=== PATIENT | male | born 1940 | race Caucasian/White ===

== ENCOUNTER 2019-07-31 05:44 | Emergency (ER) | payer MEDICARE ==
[2019-07-31] MEDS ORDERED: Amiodarone 150 MG/3 ML VIAL ONE ×2 (05:50→13:52)
[2019-07-31] MEDS ORDERED: Sodium Bicarb 50 MEQ/50 ML VIAL ONE (06:15)
[2019-07-31 13:43] LABS: Base Excess-Venous -1.3 mmol/L (-2.0 to 3.0); Bicarbonate (HCO3v) 31.8 mmol/L (22.0-28.0); CO2 Tension (PvCO2) 117.2 mmHg (40.0-50.0); Chloride 110 mmol/L (98-107); Glucose 93 mg/dL (83-110); Hemoglobin - Calc 11.2 g/dL (14.0-18.0); Lactate 10.46 mmol/L (0.50-2.20); Sodium 154 mmol/L (138-145); T. Carbon Dioxide 35.4 mmol/L (22.0-28.0); vO2 Saturation-calc 41.4 % (60.0-85.0)
[2019-07-31] MEDS ORDERED: Dextrose 50% Abboject 50 ML SYRINGE ONE (13:52)
[2019-07-31] MEDS ORDERED: EPINEPHrine 1 MG/10 ML Abboject SYRINGE ONE (13:52)
[2019-07-31] MEDS ORDERED: Sodium Bicarb 50 MEQ/50 ML Abboject 8.4% SYRINGE ONE (13:52)
[2019-07-31] MEDS ORDERED: Atropine Sulfate 1 mg/10 ml Syringe ONE (13:52)
[2019-07-31] MEDS ORDERED: EPINEPHrine 1 MG/ML AMP ONE (13:52)
== END 2019-07-31 06:37 | disposition expired ==
LOC: ERS 05:44
DX: I46.9 Cardiac arrest, cause unspecified (principal); E11.9 Type 2 diabetes mellitus without complications; I48.91 Unspecified atrial fibrillation
CPT/HCPCS: 36416; 82330; 82803; 83605; 92950; 93005; 94760; 96361; 96374; 96375; 96376; J0171; J0282; J0461